=== PATIENT | male | born 1975 | race African-American/Black ===

== ENCOUNTER 2018-12-25 14:20 | Emergency (ER) | payer OTHER ==
[~2018-12-25] VITALS: Ht 180.3 cm; Wt 106.6 kg
[2018-12-25] MEDS ORDERED: METFORMIN HCL500 MG PO (14:27)
[2018-12-25] MEDS ORDERED: LISINOPRIL20 MG PO (14:28)
[2018-12-25] MEDS ORDERED: NAPROSYN500 MG PO (15:54)
[2018-12-25] MEDS ORDERED: TRAMADOL 50 MG50 MG PO (15:54)
[2018-12-25] MEDS ORDERED: AUGMENTIN 875-1 EACH PO (16:18)
[2018-12-25 17:06] VITALS: BP 125/82
== END 2018-12-25 17:11 | disposition home or self-care (01) ==
LOC: ER 14:20
DX: J01.30 Acute sphenoidal sinusitis, unspecified (principal); I10 Essential (primary) hypertension; E11.9 Type 2 diabetes mellitus without complications